=== PATIENT | male | born 1995 | race Asian ===

== ENCOUNTER 2020-11-05 21:49 | Emergency (ER) | payer OTHER ==
[~2020-11-05] VITALS: Ht 160 cm; Wt 66.2 kg
[2020-11-05 22:52] VITALS: BP 141/91
[2020-11-05] MEDS ORDERED: OXYC-117 PO (23:03)
[2020-11-05] MEDS ORDERED: HYDROCODONE/APAP 5/325MG TABLET ONE (23:05)
[2020-11-05] MEDS: HYDROCODONE/APAP 5/325MG TABLET PO ONE (23:07)
== END 2020-11-05 23:12 | disposition home or self-care (01) ==
LOC: ER 21:58
DX: S46.811A Strain of other muscles, fascia and tendons at shoulder and upper arm level, right arm, initial encounter (principal); I10 Essential (primary) hypertension; J45.909 Unspecified asthma, uncomplicated; Z98.890 Other specified postprocedural states; X50.0XXA Overexertion from strenuous movement or load, initial encounter; Y93.89 Activity, other specified; Y92.89 Other specified places as the place of occurrence of the external cause; Y99.0 Civilian activity done for income or pay